=== PATIENT | female | born 1950 | race Caucasian/White ===

== ENCOUNTER → 2020-09-20 | Outpatient (CLI) | payer MEDICARE, BC | LOC: COL.VAS 12:43 | DX: G45.8 Other transient cerebral ischemic attacks and related syndromes (principal); E04.1 Nontoxic single thyroid nodule ==

== ENCOUNTER → 2020-10-03 | Outpatient (CLI) | payer MEDICARE, BC | LOC: COL.RAD 11:32 | DX: E04.1 Nontoxic single thyroid nodule (principal) ==

== ENCOUNTER → 2021-04-08 | Outpatient (CLI) | payer BC | LOC: MC.RAD 11:00 | DX: Z12.31 Encounter for screening mammogram for malignant neoplasm of breast (principal) ==

== ENCOUNTER → 2022-05-29 | Outpatient (CLI) | payer MEDICARE | LOC: MC.RAD 09:58 | DX: Z12.31 Encounter for screening mammogram for malignant neoplasm of breast (principal) ==